=== PATIENT | female | born 1950 | race Caucasian/White ===

== ENCOUNTER → 2020-10-09 | Day surgery (SDC) | payer MEDICARE, OTHER ==
[2020-10-06 08:57] LABS: BASOPHILS % 0.5 % (0.0-1.0); EOSINOPHILS # (AUTO) 0.2 (0.0-0.4); EOSINOPHILS % 3.1 % (0.0-6.0); HEMATOCRIT 38.1 % (34.2-44.1); HEMOGLOBIN 12.6 g/dL (12.0-16.0); LYMPHOCYTES # (AUTO) 2.8 (1.0-3.2); LYMPHOCYTES % 37.8 % (18.0-39.1); MEAN CORPUSCULAR HEMOGLOBIN 28.5 pg (28-32); MEAN CORPUSCULAR HGB CONC 33.1 g/dL (31-35); MEAN CORPUSCULAR VOLUME 86.2 fL (81-99); MONOCYTES # (AUTO) 0.5 (0.2-0.8); MONOCYTES % 6.6 % (4.4-11.3); NEUTROPHILS # (AUTO) 3.9 (2.1-6.9); NEUTROPHILS % 51.6 % (38.7-80.0); PLATELET COUNT 199 x10e3/uL (140-360); RED BLOOD COUNT 4.42 x10e6/uL (3.6-5.1); RED CELL DISTRIBUTION WIDTH 12.4 % (11.7-14.4)
[~2020-10-09] MED LIST: AMLODIPINE BESYL5 MG PO; ASA81 MG PO; CEFDINIR300 MG PO; CENTRUM ADULTS1 EACH PO; EFFIENT10 MG PO; HYZAAR 100-251 EACH PO; LIPITOR20 MG PO; MOBIC15 MG PO; NEURONTIN300 MG PO; PROTONIX20 MG PO; Z TRIBENZOR PO; Z.0.LOVAZA1 GM PO; Z.0.SERTRALINE HCL10 PO; Z.0.TRILIPIX135 MG PO; ZETIA10 MG PO; [UNRECOGNIZED DRUG - OTHER] PO; multivitamin PO
[2020-10-09 14:05] VITALS: BP 145/81
== END | disposition home or self-care (01) ==
LOC: OR 10:33
PROVIDERS: ATTEND Internal Medicine Gastroenterology
DX: K62.5 Hemorrhage of anus and rectum (principal); D12.0 Benign neoplasm of cecum; D12.4 Benign neoplasm of descending colon; K29.70 Gastritis, unspecified, without bleeding; K59.09 Other constipation; K31.89 Other diseases of stomach and duodenum; K57.30 Diverticulosis of large intestine without perforation or abscess without bleeding; K64.8 Other hemorrhoids; I25.10 Atherosclerotic heart disease of native coronary artery without angina pectoris; I12.9 Hypertensive chronic kidney disease with stage 1 through stage 4 chronic kidney disease, or unspecified chronic kidney disease; N18.9 Chronic kidney disease, unspecified; Z91.041 Radiographic dye allergy status; Z01.810 Encounter for preprocedural cardiovascular examination; Z01.812 Encounter for preprocedural laboratory examination; Z20.822 Contact with and (suspected) exposure to COVID-19; Z68.30 Body mass index [BMI] 30.0-30.9, adult
CPT/HCPCS: 36415; 43239; 45385; 85025; 88305; 88312; 93005; U0002; 45378